=== PATIENT | male | born 1975 | race Caucasian/White ===

== ENCOUNTER 2021-12-20 13:51 | Outpatient (CLI) | payer OTHER, SELFPAY ==
[2021-12-20 17:23] LABS: Chloride* 100 mmol/L (96-114); Potassium* 3.6 mmol/L (3.6-5.1); Sodium* 135 mmol/L (135-149)
[2021-12-20 17:26] LABS: Blood Urea Nitrogen* 14 mg/dL (5-24); Carbon Dioxide* 30 mmol/L (20-32); Cholesterol* 163 mg/dL (90-199); Creatinine* 0.7 mg/dL (0.5-1.5); Estimated Glomerular Filt Rate 114 ml/min; Glucose* 252 mg/dL (60-115)
[2021-12-20 17:27] LABS: Calcium* 9.1 mg/dL (8.4-10.6); HDL Cholesterol* 50 mg/dL (>=40); LDL Cholesterol Calculated 79 mg/dL (<100); Triglycerides* 170 mg/dL (40-149)
== END 2021-12-20 13:52 | disposition home or self-care (01) ==
PROVIDERS: PCP Family Medicine; Visit Provider Family Medicine
DX: E78.5 Hyperlipidemia, unspecified (principal); E13.9 Other specified diabetes mellitus without complications; I10 Essential (primary) hypertension
CPT/HCPCS: 80048; 80061

== ENCOUNTER 2022-07-13 12:54 | Outpatient (CLI) | payer OTHER, SELFPAY ==
[2022-07-13 17:44] LABS: Creatine Kinase* 177 U/L (54-186)
[2022-07-13 17:48] LABS: C Reactive Protein* 0.9 mg/dL (0.5-1.0)
[2022-07-13 19:00] LABS: Erythrocyte SedimentationRate* 16 mm/hr (2-15)
== END 2022-07-13 12:55 | disposition home or self-care (01) ==
PROVIDERS: PCP Family Medicine; Visit Provider Family Medicine
DX: M79.10 Myalgia, unspecified site (principal); M25.50 Pain in unspecified joint; R53.83 Other fatigue; I10 Essential (primary) hypertension; E78.5 Hyperlipidemia, unspecified; E13.9 Other specified diabetes mellitus without complications; F41.9 Anxiety disorder, unspecified
CPT/HCPCS: 82550; 84443; 85651; 86140; 86618

== ENCOUNTER 2023-01-17 08:22 | Outpatient (CLI) | payer OTHER, SELFPAY | END 2023-01-17 08:23 | disposition home or self-care (01) | PROVIDERS: PCP Family Medicine; Visit Provider Family Medicine | DX: Z00.00 Encounter for general adult medical examination without abnormal findings (principal); E78.5 Hyperlipidemia, unspecified; I10 Essential (primary) hypertension; E13.9 Other specified diabetes mellitus without complications | CPT/HCPCS: 80048; 80061 ==

== ENCOUNTER 2024-02-07 11:25 | Outpatient (CLI) | payer OTHER, SELFPAY | END 2024-02-07 11:26 | disposition home or self-care (01) | PROVIDERS: PCP Family Medicine; Visit Provider Family Medicine | DX: I10 Essential (primary) hypertension (principal); E78.5 Hyperlipidemia, unspecified | CPT/HCPCS: 80048; 80061 ==

== ENCOUNTER 2024-06-28 09:19 | Outpatient (CLI) | payer OTHER, SELFPAY | END 2024-06-28 09:20 | disposition home or self-care (01) | LOC: LKVREF 09:20 | PROVIDERS: PCP Family Medicine; Visit Provider Family Medicine | DX: Z12.5 Encounter for screening for malignant neoplasm of prostate (principal) | CPT/HCPCS: G0103 ==

== ENCOUNTER 2025-01-21 09:21 | Outpatient (CLI) | payer OTHER, SELFPAY | END 2025-01-21 09:22 | disposition home or self-care (01) | PROVIDERS: PCP Family Medicine; Visit Provider Family Medicine | DX: E78.2 Mixed hyperlipidemia (principal); I10 Essential (primary) hypertension | CPT/HCPCS: 80048; 80061 ==